=== PATIENT | male | born 1935 | race Caucasian/White ===

== ENCOUNTER → 2017-01-11 | Outpatient (CLI) | payer OTHER ==
[~2017-01-11] MED LIST: ALBUAER2 INH; CHOL100010 PO; DOCU-94 PO; FINA5TAB PO; GLC/500 PO; LISI-725 PO; METH10TA6 PO; METO1TAB69 PO; OXGN; OXYC-57 PO; POLY335019 PO; PRAV40TA PO; TAMS0.4C59 PO
== END | disposition home or self-care (01) ==
LOC: C.PATHSPEC 17:14
PROVIDERS: ATTEND Urology
DX: N43.3 Hydrocele, unspecified (principal); N40.1 Benign prostatic hyperplasia with lower urinary tract symptoms; N39.41 Urge incontinence; R31.9 Hematuria, unspecified; R82.8 Abnormal findings on cytological and histological examination of urine

== ENCOUNTER → 2017-04-06 | Outpatient (CLI) | payer OTHER ==
[~2017-04-06] MED LIST changes: +METO100T44 PO; -METO1TAB69 PO
== END | disposition home or self-care (01) ==
LOC: C.LABSPEC 16:51
PROVIDERS: ATTEND Urology
DX: N39.0 Urinary tract infection, site not specified (principal)

== ENCOUNTER → 2017-04-07 | Outpatient (CLI) | payer OTHER ==
--- NOTE | 2017-04-07 08:18 | DIAGNOSTIC IMAGING REPORT ---
CT OF THE CHEST WITHOUT IV CONTRAST CLINICAL HISTORY: Lung adenocarcinoma. COMPARISON STUDY: Chest CT March 28, 2015 and PET/CT September 20, 2016. CT DOSE: 379.50 mGy.cm TECHNIQUE: Axial images of the chest were obtained without IV contrast. Images were reviewed in the axial, sagittal, and coronal planes. IV contrast was not administered for this examination. FINDINGS: No enlarged axillary, mediastinal or hilar lymph nodes are present. A left sided [id number]-[id number] is in place. As before, the thyroid gland is enlarged and contains multiple nodules. The heart is moderately enlarged. Dilatation of the ascending aorta is unchanged. Dilatation of the central pulmonary arteries is unchanged. There has been interval development of multiple groundglass and tree-in-bud nodules within the right lung since PET/CT of September 20, 2016. The largest is a 6 mm right upper lobe nodule shown image 101. There is no pneumothorax or pleural effusion. No suspicious osseous lesions are present. A 1.5 cm low-attenuation right adrenal nodule is unchanged and consistent with an adenoma. IMPRESSION: 1. No convincing evidence for recurrent malignancy within the chest. 2. Interval development of multifocal groundglass and tree-in-bud nodules within the right lung since PET/CT of September 20, 2016. The findings strongly favor a mild infectious/inflammatory process. A neoplastic process is considered much less likely but a follow-up chest CT in 3 months could be performed to ensure resolution. Electronically signed by: Juan M Durand M.D. 04/07/2017 8:16 AM Dictated Date/Time: 04/07/2017 8:03 AM
== END | disposition home or self-care (01) ==
LOC: C.CTS 07:32
PROVIDERS: ATTEND Internal Medicine Hematology & Oncology
DX: C34.90 Malignant neoplasm of unspecified part of unspecified bronchus or lung (principal); R91.8 Other nonspecific abnormal finding of lung field

== ENCOUNTER → 2017-06-14 | Outpatient (CLI) | payer OTHER ==
[~2017-06-14] MED LIST changes: -METO100T44 PO; +METO1TAB69 PO
== END | disposition home or self-care (01) ==
LOC: C.PATHSPEC 17:02 → C.LABSPEC 17:02
PROVIDERS: ATTEND Urology
DX: N39.41 Urge incontinence (principal)

== ENCOUNTER → 2018-02-13 | Outpatient (CLI) | payer OTHER ==
[~2018-02-13] MED LIST changes: +METO100T44 PO; -METO1TAB69 PO
[2018-02-13 17:15] LABS: ALBUMIN 3.4 gm/dl (3.4-5.0); ALT/SGPT 15 U/L (12-78); AST/SGOT 13 U/L (15-37); BLOOD UREA NITROGEN 26 mg/dl (7-18); CALCIUM 10.2 mg/dl (8.5-10.1); CARBON DIOXIDE 28 mmol/L (21-32); CREATININE 0.86 mg/dl (0.60-1.40); GLUCOSE 131 mg/dl (70-99); POTASSIUM 3.7 mmol/L (3.5-5.1); SODIUM 140 mmol/L (136-145)
[2018-02-13 17:27] LABS: ALKALINE PHOSPHATASE 54 U/L (45-117); CHOLESTEROL 112 mg/dl (0-200); LDL CHOLESTEROL CALCULATED 44 mg/dl; TOTAL PROTEIN 7.1 gm/dl (6.4-8.2)
[2018-02-14 06:59] LABS: HEMOGLOBIN A1C 6.4 % (4.5-5.6)
== END | disposition home or self-care (01) ==
LOC: C.LABBFT 14:09
PROVIDERS: ATTEND Internal Medicine
DX: E78.5 Hyperlipidemia, unspecified (principal); E05.90 Thyrotoxicosis, unspecified without thyrotoxic crisis or storm; E21.3 Hyperparathyroidism, unspecified; F03.90 Unspecified dementia, unspecified severity, without behavioral disturbance, psychotic disturbance, mood disturbance, and anxiety; E11.9 Type 2 diabetes mellitus without complications

== ENCOUNTER 2019-12-14 07:23 | Inpatient (IN) ==
[2019-12-14] MEDS ORDERED: HYDROmorphone INJ 0.5 MG/0.5 ML SYR IV PRN (07:54)
[2019-12-14] MEDS ORDERED: ONDANSETRON INJ 2 MG/ML 2 ML VIAL IV STA (07:54)
[2019-12-14] MEDS ORDERED: DIPHTHERIA/TETANUS/PERTUSSIS 0.5 ML SYR/VIAL IM ONE (08:00)
[2019-12-14] MEDS ORDERED: SODIUM CHLORIDE 0.9% 1000ML 1,000 ML IV ONE (08:06)
[2019-12-14] MEDS ORDERED: BACITRACIN OINT 15 GM TUBE EXT ONE (08:30)
[2019-12-14 09:10] LABS: Basophils # (auto) 0.02 K/uL (0-0.2); Basophils % (auto) 0.1 %; Eosinophils # (auto) 0.01 K/uL (0-0.5); Eosinophils % (auto) 0.1 %; Hematocrit (blood only) 45.3 % (42-52); Hemoglobin 15.2 g/dL (14.0-18.0); Immature Granulocytes # (auto) 0.05 K/uL (0.00-0.02); Immature Granulocytes % (auto) 0.4 %; Lymphocytes # (auto) 0.72 K/uL (1.2-3.4); Lymphocytes % (auto) 5.4 %; Mean Corpuscular Hgb Conc 33.6 g/dL (32-36); Mean Corpuscular Volume 92.4 fL (80-100); Mean Platelet Volume 11.2 fL (7.4-10.4); Monocytes # (auto) 1.25 K/uL (0.11-0.59); Monocytes % (auto) 9.4 %; Neutrophils % (auto) 84.6 %; Platelet Count 214 K/uL (130-400); RDW Coefficient of Variation 14.1 % (11.5-14.5); RDW Standard Deviation 47.7 fL (36.4-46.3); White Blood Count 13.35 K/uL (4.8-10.8)
--- NOTE | 2019-12-14 09:12 | XRay Report ---
XR chest 1V portable CLINICAL HISTORY: Atypical chest pain COMPARISON STUDY: 05/12/2019 FINDINGS: The cardiac and mediastinal contours remain stable. The left-sided A-Port catheter remains unchanged in position. There is aortic tortuosity/ectasia. There is persistent left mediastinal fulln ess. There is no failure. There is no lobar consolidation. There are no significant pleural effusions .[ IMPRESSION: 1. Persistent thoracic aortic tortuosity/ectasia 2. Postsurgical changes of a prior left upper lobectomy 3. No acute findings. ACT 112: Negative or not required by law. Electronically signed by: Cole Ram M.D. 12/14/2019 9:11 AM
[2019-12-14 09:22] LABS: Partial Thromboplastin Ratio 0.8; Partial Thromboplastin Time 22.2 Seconds (21.0-31.0); Prothrombin Time 10.6 Seconds (9.0-12.0)
[2019-12-14 09:28] LABS: Alanine Aminotransferase 17 U/L (12-78); Albumin Level 3.4 gm/dl (3.4-5.0); Aspartate Aminotransferase 18 U/L (15-37); BUN Creatinine Ratio 31.2 (10-20); Blood Urea Nitrogen 29 mg/dl (7-18); Calcium 10.2 mg/dl (8.5-10.1); Carbon Dioxide 28 mmol/L (21-32); Chloride 109 mmol/L (98-107); Creatinine Clr Calc Pharmacy 65.7 ml/min; Est GFR (African American) 85.9; Est GFR (Non-African American) 74.2; Glucose 115 mg/dl (70-99); Lipase 114 U/L (73-393); Potassium 3.9 mmol/L (3.5-5.1); Sodium 141 mmol/L (136-145)
[2019-12-14 09:33] LABS: Albumin Globulin Ratio 0.9 (0.9-2); Alkaline Phosphatase 53 U/L (45-117); Bilirubin,Total 0.5 mg/dl (0.2-1); Creatine Kinase 242 U/L (39-308); Creatine Kinase MB 7.3 ng/ml (0.5-3.6); Globulin 3.7 gm/dl (2.5-4.0); Total Protein 7.1 gm/dl (6.4-8.2); Troponin I < 0.015 ng/ml (0-0.045)
--- NOTE | 2019-12-14 09:36 | CT Scan Report ---
CT OF THE HEAD WITHOUT CONTRAST CLINICAL HISTORY: Altered mental status. COMPARISON STUDY: Head CT May 13, 2019. CT DOSE: 638.56 mGycm TECHNIQUE: Helical axial images of the head were obtained without IV contrast. Automated exposure con trol was utilized for the study. A dose lowering technique was utilized adhering to the principles o f ALARA. FINDINGS: No acute intracranial hemorrhage, midline shift or mass effect is present. Ventricular syst em is stable. The basilar cisterns are patent. There are no extra axial collections. Moderate atrophy and small vessel disease is noted. 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 There are no findings to suggest acute dural sinus thrombosis or acute territorial infarct . There are no significant calvarial abnormalities. IMPRESSION: No acute intracranial findings. No change in appearance of the brain. ACT 112: Negative or not required by law. Electronically signed by: Juan M Durand M.D. 12/14/2019 9:35 AM
[2019-12-14 09:51] LABS: Appearance Urine Clear (Clear); Bacteria Urine Automated Negative (Negative); Bilirubin Urine Negative (Negative); Blood Urine 1+ (Negative); Color Urine Yellow; Glucose Urine UA Negative (Negative); Ketones Urine Negative (Negative); Leukocyte Esterase Urine 1+ (Negative); Nitrite Urine Negative (Negative); Protein Urine Trace (Negative); Specific Gravity Urine 1.021 (1.000-1.030); Urobilinogen Urine Negative (Negative)
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
[2019-12-14] MEDS ORDERED: DOCUSATE SODIUM 100 MG CAP PO PRN (13:00)
[2019-12-14] MEDS ORDERED: MoRPHine SULFATE 2 MG/ML CARP IV PRN (13:00)
--- NOTE | 2019-12-14 13:04 | Electrocardiogram Report ---
Test Reason : Blood Pressure : / mmHG Vent. Rate : 066 BPM Atrial Rate : 066 BPM P-R Int : 204 ms QRS Dur : 118 ms QT Int : 390 ms P-R-T Axes : 056 -32 026 degrees QTc Int : 408 ms Sinus rhythm with Premature atrial complexes Left axis deviation Abnormal ECG When compared with ECG of 11-AUG-2019 05:29, No significant change was found Confirmed by Jason Zeng [id number]) on 12/14/2019 1:03:57 PM Referred By: REFERRED SELF Confirmed By:Ji Zeng
[2019-12-14] MEDS ORDERED: PNEUMOCOCCAL POLYSACCHARIDES 25 MCG/0.5 ML VIAL/SYR IM ONE (13:17)
[2019-12-14] MEDS ORDERED: PNEUMOCOCCAL ADMINISTRATION CHARGE ONE (13:17)
[2019-12-14 13:30] LABS: Magnesium 2.1 mg/dl (1.8-2.4); Phosphorus 1.7 mg/dl (2.5-4.9)
[2019-12-14] MEDS: SODIUM CHLORIDE 0.9% 1000ML 1,000 ML IV SCH ×2 (13:48→21:29)
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
[2019-12-14] MEDS: BACITRACIN OINT 15 GM TUBE EXT SCH ×2 (17:38→21:28)
[2019-12-14] MEDS: ACETAMINOPHEN 325 MG TAB PO PRN (20:07)
[2019-12-15 05:52] LABS: Basophils # (auto) 0.02 K/uL (0-0.2); Basophils % (auto) 0.3 %; Eosinophils # (auto) 0.19 K/uL (0-0.5); Eosinophils % (auto) 2.4 %; Hematocrit (blood only) 41.8 % (42-52); Hemoglobin 13.4 g/dL (14.0-18.0); Immature Granulocytes # (auto) 0.02 K/uL (0.00-0.02); Immature Granulocytes % (auto) 0.3 %; Lymphocytes # (auto) 1.19 K/uL (1.2-3.4); Lymphocytes % (auto) 14.9 %; Mean Corpuscular Hemoglobin 30.2 pg (25-34); Mean Corpuscular Hgb Conc 32.1 g/dL (32-36); Mean Corpuscular Volume 94.4 fL (80-100); Mean Platelet Volume 10.8 fL (7.4-10.4); Monocytes # (auto) 1.11 K/uL (0.11-0.59); Monocytes % (auto) 13.9 %; Neutrophils # (auto) 5.47 K/uL (1.4-6.5); Neutrophils % (auto) 68.2 %; Platelet Count 198 K/uL (130-400); RDW Coefficient of Variation 14.2 % (11.5-14.5); RDW Standard Deviation 49.3 fL (36.4-46.3); Red Blood Count 4.43 M/uL (4.7-6.1)
[2019-12-15 06:21] LABS: BUN Creatinine Ratio 29.1 (10-20); Calcium 9.3 mg/dl (8.5-10.1); Creatinine Clr Calc Pharmacy 76.2 ml/min; Est GFR (African American) 94.6; Est GFR (Non-African American) 81.6; Potassium 4.1 mmol/L (3.5-5.1)
[2019-12-15 06:32] LABS: Thyroid Stimulating Hormone 1.37 uIu/ml (0.300-4.500)
[2019-12-15] MEDS: METOPROLOL SUCC 50MG EXT REL TAB PO SCH (08:55)
[2019-12-15] MEDS: DONEPEZIL HCL 5 MG TAB PO SCH (08:56)
[2019-12-15] MEDS: PRAVASTATIN SOD 40 MG TAB PO SCH (08:56)
[2019-12-15] MEDS: FINASTERIDE 5 MG TAB PO SCH (08:56)
[2019-12-15] MEDS: TAMSULOSIN HCL 0.4 MG CAP PO SCH (08:56)
[2019-12-15] MEDS: CHOLECALCIFEROL 1,000 UNITS 25 MCG TAB PO SCH (08:57)
[2019-12-15] MEDS: BACITRACIN OINT 15 GM TUBE EXT SCH ×2 (08:57→13:47)
[2019-12-15] MEDS: methIMAzole 5 MG TABLET PO SCH (08:57)
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
[2019-12-15] MEDS: ACETAMINOPHEN 325 MG TAB PO PRN (19:10)
[2019-12-15] MEDS ORDERED: HALOPERIDOL LACTATE 5 MG/ML 1 ML VIAL ONE (21:05)
[2019-12-15] MEDS ORDERED: HALOPERIDOL LACTATE 5 MG/ML 1 ML VIAL IM STA ×2 (21:11→22:06)
[2019-12-15] MEDS ORDERED: HALOPERIDOL LACTATE 5 MG/ML 1 ML VIAL IM PRN (22:12)
[2019-12-16] MEDS: CHOLECALCIFEROL 1,000 UNITS 25 MCG TAB PO SCH (08:30)
[2019-12-16] MEDS: PRAVASTATIN SOD 40 MG TAB PO SCH (08:30)
[2019-12-16] MEDS: DONEPEZIL HCL 5 MG TAB PO SCH (08:30)
[2019-12-16] MEDS: methIMAzole 5 MG TABLET PO SCH (08:31)
[2019-12-16] MEDS: FINASTERIDE 5 MG TAB PO SCH (08:31)
[2019-12-16] MEDS: TAMSULOSIN HCL 0.4 MG CAP PO SCH (08:31)
[2019-12-16] MEDS: METOPROLOL SUCC 50MG EXT REL TAB PO SCH (08:32)
[2019-12-16] MEDS: LIDOCAINE 5% 1 PATCH TD SCH (10:29)
[2019-12-16] MEDS: ACETAMINOPHEN 500 MG TAB PO SCH ×2 (13:26→21:11)
[2019-12-16] MEDS ORDERED: KETOROLAC TROMETHAMINE 15 MG/ML VIAL IV ONE (16:44)
[2019-12-16] MEDS ORDERED: OLANZAPINE ZYDIS 5 MG ORALLY DIS. TAB PO PRN (16:47)
[2019-12-16] MEDS ORDERED: IBUPROFEN 200 MG TAB PO PRN (19:21)
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
[2019-12-17 05:40] LABS: Hematocrit (blood only) 39.6 % (42-52); Hemoglobin 13.1 g/dL (14.0-18.0); Mean Corpuscular Hemoglobin 30.7 pg (25-34); Mean Corpuscular Hgb Conc 33.1 g/dL (32-36); Mean Corpuscular Volume 92.7 fL (80-100); Mean Platelet Volume 10.6 fL (7.4-10.4); Platelet Count 201 K/uL (130-400); RDW Coefficient of Variation 14.1 % (11.5-14.5); RDW Standard Deviation 47.9 fL (36.4-46.3); Red Blood Count 4.27 M/uL (4.7-6.1); White Blood Count 8.49 K/uL (4.8-10.8)
[2019-12-17 06:07] LABS: BUN Creatinine Ratio 30.5 (10-20); Calcium 9.4 mg/dl (8.5-10.1); Creatinine Clr Calc Pharmacy 76.2 ml/min; Est GFR (African American) 94.6; Est GFR (Non-African American) 81.6; Potassium 3.8 mmol/L (3.5-5.1)
[2019-12-17] MEDS: CHOLECALCIFEROL 1,000 UNITS 25 MCG TAB PO SCH (08:55)
[2019-12-17] MEDS: TAMSULOSIN HCL 0.4 MG CAP PO SCH (08:56)
[2019-12-17] MEDS: FINASTERIDE 5 MG TAB PO SCH (08:56)
[2019-12-17] MEDS: DONEPEZIL HCL 5 MG TAB PO SCH (08:56)
[2019-12-17] MEDS: ACETAMINOPHEN 500 MG TAB PO SCH ×3 (08:57→20:38)
[2019-12-17] MEDS: PRAVASTATIN SOD 40 MG TAB PO SCH (08:57)
[2019-12-17] MEDS: methIMAzole 5 MG TABLET PO SCH (08:57)
[2019-12-17] MEDS: CYCLOBENZAPRINE HCL 5 MG TAB PO PRN (09:00)
[2019-12-17] MEDS: LIDOCAINE 5% 1 PATCH TD SCH (09:00)
[2019-12-17] MEDS: METOPROLOL SUCC 50MG EXT REL TAB PO SCH (09:00)
--- NOTE | 2019-12-17 16:52 | CT Scan Report ---
CT lumbar spine wo con HISTORY: 84 years-old Male Fall/Pain acute low back pain status post fall COMPARISON: CT abdomen and pelvis 07/23/2019 TECHNIQUE: Multiple axial CT images of the lumbar spine were obtained without the use of IV contrast. A dose lowering technique was used consistent with the principals of ALARA. FINDINGS: Demineralized appearance of the bones. Moderate multilevel spondylitic spurring with mild multilevel disc space narrowing and mild to moderate facet arthrosis. There is no acute fracture or subluxation. Minimal levoscoliosis centered at L3. Moderate degenerative changes of the SI joints. The imaged sac rum and iliac bones appear intact. Transitional lumbosacral anatomy with sacralization of the right L 5 spinous process. There is suggestion of a subacute healing nondisplaced fracture of the right L3 tr ansverse process, new from comparison. There are a few subcentimeter sclerotic foci of the sacrum sug gestive of probable bone islands. Multilevel annular disc bulging with posterior disc osteophyte comp harley. Mild foraminal narrowing is noted at L3-L4 and L4-L5. There is at least mild multilevel central canal narrowing. Extensive calcified plaque the abdominal aorta without aneurysm. Moderate fecal retention. Left nephr olithiasis. No adenopathy or retroperitoneal fluid collections. IMPRESSION: 1. No acute fracture or subluxation. 2. Healing subacute nondisplaced fracture of the right L3 transverse process, new from 07/23/2019. 3. Multilevel degenerative changes as above. 4. Left nephrolithiasis. ACT 112: Negative or not required by law. The above report was generated using voice recognition software. It may contain grammatical, syntax o r spelling errors. Electronically signed by: Kamlesh Raphael M.D. 12/17/2019 4:51 PM
--- NOTE | 2019-12-17 18:22 | XRay Report ---
XR ribs BI min 3V HISTORY: 84 years-old Male Fall/Pain acute chest and rib pain status post fall COMPARISON: Chest radiograph 12/14/2019, chest CT 07/04/2019 TECHNIQUE: PA view of the chest with 4 views of the bilateral ribs FINDINGS: Thoracic aortic tortuosity redemonstrated with calcified plaque. Cardiomegaly. Postoperative changes involving the left lung are redemonstrated with scarring of the left lung base. Small bilateral pleur al effusions. No pneumothorax identified. 6 mm nodular opacity projects over the right lung base. Unc hanged positioning of the left chest [id number]-p-Umbx catheter. Degenerative changes of the shoulders an d spine. Mildly angulated healed remote fractures of the lateral left and third through eighth ribs. No definite acute displaced rib fracture identified. IMPRESSION: 1. Multiple healed remote left-sided rib fractures. No definitive acute displaced rib fracture identi fied. 2. No pneumothorax. 3. Small pleural effusions. 4. Postoperative changes of the left lung. ACT 112: Negative or not required by law. The above report was generated using voice recognition software. It may contain grammatical, syntax o r spelling errors. Electronically signed by: Kamlesh Raphael M.D. 12/17/2019 6:20 PM
[2019-12-17] MEDS: KETOROLAC TROMETHAMINE 15 MG/ML VIAL IV PRN (19:01)
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
[2019-12-18] MEDS: LIDOCAINE 5% 1 PATCH TD SCH (08:08)
[2019-12-18] MEDS: DONEPEZIL HCL 5 MG TAB PO SCH (09:11)
[2019-12-18] MEDS: ACETAMINOPHEN 500 MG TAB PO SCH ×3 (09:11→20:37)
[2019-12-18] MEDS: PRAVASTATIN SOD 40 MG TAB PO SCH (09:12)
[2019-12-18] MEDS: FINASTERIDE 5 MG TAB PO SCH (09:12)
[2019-12-18] MEDS: methIMAzole 5 MG TABLET PO SCH (09:12)
[2019-12-18] MEDS: TAMSULOSIN HCL 0.4 MG CAP PO SCH (09:12)
[2019-12-18] MEDS: CHOLECALCIFEROL 1,000 UNITS 25 MCG TAB PO SCH (09:15)
[2019-12-18] MEDS: METOPROLOL SUCC 50MG EXT REL TAB PO SCH (09:15)
[2019-12-18] MEDS: KETOROLAC TROMETHAMINE 15 MG/ML VIAL IV PRN ×2 (09:18→20:36)
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
[2019-12-19] MEDS: LIDOCAINE 5% 1 PATCH TD SCH (08:11)
[2019-12-19] MEDS: KETOROLAC TROMETHAMINE 15 MG/ML VIAL IV PRN (09:14)
[2019-12-19] MEDS: PRAVASTATIN SOD 40 MG TAB PO SCH (09:22)
[2019-12-19] MEDS: DONEPEZIL HCL 5 MG TAB PO SCH (09:22)
[2019-12-19] MEDS: CHOLECALCIFEROL 1,000 UNITS 25 MCG TAB PO SCH (09:22)
[2019-12-19] MEDS: methIMAzole 5 MG TABLET PO SCH (09:22)
[2019-12-19] MEDS: METOPROLOL SUCC 50MG EXT REL TAB PO SCH (09:23)
[2019-12-19] MEDS: TAMSULOSIN HCL 0.4 MG CAP PO SCH (09:23)
[2019-12-19] MEDS: FINASTERIDE 5 MG TAB PO SCH (09:23)
[2019-12-19] MEDS: ACETAMINOPHEN 500 MG TAB PO SCH ×2 (09:24→13:42)
[2019-12-19] MEDS: CYCLOBENZAPRINE HCL 5 MG TAB PO PRN (10:24)
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
== END 2019-12-19 15:21 | DRG 934 ==
LOC: ED 07:23 → 3N 07:23 → SUATTDRO 11:30 → 3N 12:22 → SUATTDRO 12-16 08:21